=== PATIENT | female | born 1955 | race Caucasian/White ===

== ENCOUNTER 2023-02-06 08:17 | Outpatient (CLI) | payer BC | END 2023-02-06 08:18 | disposition home or self-care (01) | LOC: CSHCT 08:17 | PROVIDERS: ATTEND Family Medicine | DX: R91.1 Solitary pulmonary nodule (principal) | CPT/HCPCS: 71250 ==

== ENCOUNTER 2023-10-02 12:22 | Outpatient (CLI) | payer OTHER, MEDICARE | END 2023-10-02 12:23 | disposition home or self-care (01) | LOC: CSHCT 12:22 | PROVIDERS: ATTEND Orthopaedic Surgery | DX: Z01.818 Encounter for other preprocedural examination (principal); M17.12 Unilateral primary osteoarthritis, left knee ==